=== PATIENT | female | born 1955 | race Caucasian/White ===

== ENCOUNTER 2017-01-04 14:08 | Emergency (ER) | payer OTHER ==
[~2017-01-04 14:08] MED LIST: ASPIRIN EC81 MG PO; DAILY VITE1 EACH PO; GLUCOPHAGE1000 MG PO; HUMALOG100 UNIT/1 SQ; LANTUS100 UNIT/1 SQ; LISINOPRIL40 MG PO; LOPID600 MG PO; NEURONTIN800 MG PO; NITROQUICK0.4 MG SL; PAXIL40 MG PO; PERCOCET 5-3251 EACH PO; PRAVACHOL80 MG PO; PROTONIX40 MG PO; TRAZODONE HCL50 MG PO; TYLENOL EXTRA500 MG PO; ZYRTEC10 MG PO
== END 2017-01-04 17:09 | disposition home or self-care (01) ==
LOC: ER 14:08
DX: M75.91 Shoulder lesion, unspecified, right shoulder (principal); J18.9 Pneumonia, unspecified organism; E78.5 Hyperlipidemia, unspecified; I10 Essential (primary) hypertension; E11.9 Type 2 diabetes mellitus without complications; Z98.51 Tubal ligation status; Z86.73 Personal history of transient ischemic attack (TIA), and cerebral infarction without residual deficits; Z87.891 Personal history of nicotine dependence; Z79.82 Long term (current) use of aspirin; Z79.899 Other long term (current) drug therapy; Z79.4 Long term (current) use of insulin; Z88.5 Allergy status to narcotic agent; Z88.6 Allergy status to analgesic agent; Z91.040 Latex allergy status
CPT/HCPCS: 36415